=== PATIENT | female | born 1940 | race Caucasian/White ===

== ENCOUNTER 2017-09-01 10:13 | Outpatient (CLI) | payer OTHER ==
[~2017-09-01 10:13] MED LIST: ANASTROZOLE1 MG PO; OSEL75CA PO; SYNTHROID75 MCG PO; TUSSI-PRES LIQ118 ML PO
== END 2017-09-01 10:16 | disposition home or self-care (01) ==
LOC: SONOGRAMA 10:13
DX: N63.10 Unspecified lump in the right breast, unspecified quadrant (principal); D05.12 Intraductal carcinoma in situ of left breast

== ENCOUNTER 2017-09-01 10:18 | Outpatient (CLI) | payer OTHER | END 2017-09-01 10:20 | disposition home or self-care (01) | LOC: RAD 10:18 | DX: M54.5 Low back pain (principal) ==

== ENCOUNTER 2017-10-06 12:37 | Outpatient (CLI) | payer OTHER | END 2017-10-06 12:42 | disposition home or self-care (01) | LOC: SONOGRAMA 12:37 | DX: N63.41 Unspecified lump in right breast, subareolar (principal) ==

== ENCOUNTER → 2018-10-19 | Outpatient (CLI) | payer OTHER | END | disposition home or self-care (01) | LOC: NUCLEAR 07:00 | DX: C50.412 Malignant neoplasm of upper-outer quadrant of left female breast (principal); D05.12 Intraductal carcinoma in situ of left breast; D51.3 Other dietary vitamin B12 deficiency anemia; E03.9 Hypothyroidism, unspecified; Z08 Encounter for follow-up examination after completed treatment for malignant neoplasm | CPT/HCPCS: 78816; A9552 ==

== ENCOUNTER 2018-11-29 10:59 | Outpatient (CLI) | payer OTHER | END 2018-11-29 11:09 | disposition home or self-care (01) | LOC: LAB 10:59 | DX: N20.0 Calculus of kidney (principal); Z51.81 Encounter for therapeutic drug level monitoring ==

== ENCOUNTER 2018-11-30 10:10 | Outpatient (CLI) | payer OTHER | END 2018-11-30 10:16 | disposition home or self-care (01) | LOC: TOM 10:10 | DX: C50.412 Malignant neoplasm of upper-outer quadrant of left female breast (principal); D05.12 Intraductal carcinoma in situ of left breast; D24.1 Benign neoplasm of right breast; D51.3 Other dietary vitamin B12 deficiency anemia; E03.8 Other specified hypothyroidism; I73.89 Other specified peripheral vascular diseases; M81.0 Age-related osteoporosis without current pathological fracture; I10 Essential (primary) hypertension | CPT/HCPCS: 71260; Q9965 ==

== ENCOUNTER 2020-07-27 13:18 | Outpatient (CLI) | payer OTHER | END 2020-07-27 13:29 | disposition home or self-care (01) | LOC: RAD 13:18 | PROVIDERS: ATTEND Urology | DX: N20.0 Calculus of kidney (principal) ==

== ENCOUNTER 2020-07-31 10:28 | Outpatient (CLI) | payer OTHER | END 2020-07-31 15:00 | disposition home or self-care (01) | LOC: TOM 10:28 | PROVIDERS: ATTEND Urology | DX: N20.0 Calculus of kidney (principal) ==

== ENCOUNTER 2020-11-26 12:09 | Emergency (ER) | payer OTHER ==
[~2020-11-26] VITALS: Ht 167.6 cm; Wt 62.6 kg
[2020-11-26] MEDS ORDERED: SIMVASTATIN5 MG (13:03)
== END 2020-11-26 20:46 | disposition home or self-care (01) ==
LOC: ER 12:09
DX: N39.0 Urinary tract infection, site not specified (principal); R31.29 Other microscopic hematuria; R10.31 Right lower quadrant pain